=== PATIENT | female | born 1975 | race Caucasian/White ===

== ENCOUNTER 2023-11-06 13:10 | Emergency (ER) | payer OTHER ==
[2023-11-06 13:38] VITALS: BP 144/100; PULSE 83; RESP 18; TEMP 98; BMI 30.5
[2023-11-06] MEDS ORDERED: DIPHTH,PERTUSS(ACELL),TET 0.5 ML DISP.SYRIN IM ONE (13:44)
[2023-11-06] MEDS ORDERED: CEPHALEXIN MONOHYDRATE 500 MG CAPSULE (UD) ONE (13:44)
[2023-11-06] MEDS: DIPHTH,PERTUSS(ACELL),TET 0.5 ML DISP.SYRIN IM ONE (13:48)
[2023-11-06] MEDS: CEPHALEXIN MONOHYDRATE 500 MG CAPSULE (UD) PO ONE (13:49)
== END 2023-11-06 14:10 | disposition home or self-care (01) ==
LOC: FER 13:10
PROC: 0XQKXZZ Repair Left Hand, External Approach (ICD-10-PCS; principal; 2023-11-06)
PROC: 3E0234Z Introduction of Serum, Toxoid and Vaccine into Muscle, Percutaneous Approach (ICD-10-PCS; 2023-11-06)
DX: S61.412A Laceration without foreign body of left hand, initial encounter (principal); R51.9 Headache, unspecified; W26.0XXA Contact with knife, initial encounter; Z23 Encounter for immunization
CPT/HCPCS: 90715; 99284-25